=== PATIENT | female | born 1965 | race Caucasian/White ===

== ENCOUNTER 2020-06-24 14:49 | Inpatient (IN) | payer MEDICARE, OTHER ==
[~2020-06-24] VITALS: Ht 160 cm; Wt 110.3 kg
[2020-06-24] MEDS ORDERED: LEXAPRO20 MG PO (14:55)
[2020-06-24] MEDS ORDERED: PEPCID20 MG PO (14:57)
[2020-06-24] MEDS ORDERED: DITROPAN XL10 MG PO (14:57)
[2020-06-24] MEDS ORDERED: 8HR ARTHRITIS650 M1 PO (14:59)
[2020-06-24] MEDS ORDERED: Lopressor25 MG PO (15:06)
[2020-06-24] MEDS ORDERED: INVEGA6 MG PO (15:07)
[2020-06-24] MEDS ORDERED: VITAMIN E400 UNI3 PO (15:08)
[2020-06-24] MEDS ORDERED: KLONOPIN1 M1 PO (15:09)
[2020-06-24] MEDS ORDERED: KLONOPIN2 M1 PO (15:10)
[2020-06-24] MEDS ORDERED: TRAZODONE100 MG PO (15:10)
[2020-06-24] MEDS ORDERED: TYLENOL325 M1 PO (15:11)
[2020-06-24] MEDS ORDERED: ROBITUSSIN DM 101 OZ PO (15:12)
[2020-06-24] MEDS ORDERED: CEPACOL SORE T1 EACH MM (15:13)
[2020-06-24] MEDS ORDERED: MAALOX ADVANCE355 M1 PO (15:15)
[2020-06-24] MEDS ORDERED: MILK OF MA400 MG/51 PO (15:16)
[2020-06-24] MEDS ORDERED: NEURONTIN100 MG PO (16:00)
[2020-06-24 22:13] VITALS: BP 140/78
[2020-06-24 22:19] LABS: BILIRUBIN Negative (Negative); BLOOD Negative (Negative); CLARITY Clear (Clear); COLOR Yellow (Yellow); GLUCOSE Negative (Negative); KETONE Negative (Negative); LEUKO ESTERASE Trace (Negative); NITRITE Negative (Negative); SPECIFIC GRAVITY <= 1.005 (1.001-1.030); UROBILINOGEN 0.2 E.U./dl (0.0-1.0)
[2020-06-25 06:42] LABS: HEMATOCRIT 41.1 % (37.0-47.0); LYMPH # 1.8 10*3/uL (1.3-4.4); LYMPH % 28.1 % (27.0-41.0); MEAN CELL VOLUME 87.1 fl (81.0-99.0); MEAN CORPUSCULAR HGB CONC 32.1 g/dl (33.0-37.0); MEAN PLATELET VOLUME 9.6 fl (9.6-12.3); MONO # 0.5 10*3/uL (0.1-1.0); MONO % 7.4 % (3.0-9.0); NEUT % 64.3 % (47.0-73.0); PLATELET COUNT AUTOMATED 195 10*3/uL (130-400); RED BLOOD COUNT 4.72 10*6/uL (4.10-5.10); RED CELL DISTRI WIDTH 15.7 % (0-14.5); WHITE BLOOD COUNT 6.2 10*3/uL (4.8-10.8)
[2020-06-25 06:53] LABS: CHLORIDE 108 mmol/L (98-107); POTASSIUM 4.1 mmol/L (3.5-5.1); SODIUM 141 mmol/L (136-145)
[2020-06-25 07:09] LABS: ALBUMIN 3.3 gm/dl (3.1-4.5); ALKALINE PHOSPHATASE 74 U/L (45-117); BUN 8 mg/dl (7-24); CHOLESTEROL 125 mg/dL (<200); CREATININE 0.74 mg/dL (0.55-1.02); LDL CHOLESTEROL 48 mg/dL (9-159); SGOT/AST 14 IU/L (3-35); SGPT/ALT 23 U/L (12-78); TOTAL PROTEIN 6.6 gm/dL (6.4-8.2); TRIGLYCERIDES 184 mg/dl (<150)
[2020-06-25 07:24] VITALS: BP 140/69
[2020-06-25 20:00] VITALS: BP 120/76
[2020-06-26 07:24] VITALS: BP 139/83
[2020-06-26 20:00] VITALS: BP 140/94
[2020-06-27 07:25] VITALS: BP 143/53
[2020-06-27 20:00] VITALS: BP 143/86
[2020-06-28 07:14] VITALS: BP 142/81
[2020-06-28 20:00] VITALS: BP 144/84
[2020-06-29 07:32] VITALS: BP 131/88
[2020-06-29 20:00] VITALS: BP 132/78
[2020-06-30 07:34] VITALS: BP 134/70
[2020-06-30 08:59] LABS: HEMATOCRIT 43.5 % (37.0-47.0); LYMPH # 1.2 10*3/uL (1.3-4.4); LYMPH % 22.4 % (27.0-41.0); MEAN CELL VOLUME 86.5 fl (81.0-99.0); MEAN CORPUSCULAR HGB 28.4 pg (27.0-31.0); MEAN CORPUSCULAR HGB CONC 32.9 g/dl (33.0-37.0); MEAN PLATELET VOLUME 9.5 fl (9.6-12.3); MONO # 0.4 10*3/uL (0.1-1.0); MONO % 7.4 % (3.0-9.0); NEUT # 3.6 10*3/uL (2.3-7.9); PLATELET COUNT AUTOMATED 186 10*3/uL (130-400); RED BLOOD COUNT 5.03 10*6/uL (4.10-5.10); WHITE BLOOD COUNT 5.2 10*3/uL (4.8-10.8)
[2020-06-30 09:18] LABS: ALBUMIN 3.3 gm/dl (3.1-4.5); ALKALINE PHOSPHATASE 80 U/L (45-117); BUN 4 mg/dl (7-24); CHLORIDE 102 mmol/L (98-107); POTASSIUM 3.7 mmol/L (3.5-5.1); SGOT/AST 19 IU/L (3-35); SGPT/ALT 27 U/L (12-78); SODIUM 137 mmol/L (136-145); TOTAL PROTEIN 7.4 gm/dL (6.4-8.2)
[2020-06-30 09:25] LABS: VALPROIC ACID (DEPAKENE) 89.1 ug/ml (50-100)
[2020-06-30 20:00] VITALS: BP 148/68
[2020-07-01 07:17] VITALS: BP 121/70
[2020-07-01 20:00] VITALS: BP 118/60
[2020-07-01 22:05] LABS: CLONAZEPAM (KLONOPIN),SERUM 25 ng/mL (20-70)
[2020-07-02 07:21] VITALS: BP 111/76
[2020-07-02] MEDS ORDERED: OMEPRAZOLE MAGN20 MG PO (07:52)
[2020-07-02] MEDS ORDERED: FANAPT4 MG PO (09:36)
[2020-07-02] MEDS ORDERED: DIVALPROEX SOD500 MG PO (09:36)
[2020-07-02] MEDS ORDERED: FANAPT8 MG PO (09:36)
[2020-07-02] MEDS ORDERED: DIVALPROEX SOD250 MG PO (09:36)
== END 2020-07-02 14:14 | DRG 885 ==
LOC: 3N
PROVIDERS: Counselor Professional; ADMIT Psychiatry & Neurology Psychiatry; ATTEND Psychiatry & Neurology Psychiatry
DX: F25.0 Schizoaffective disorder, bipolar type (principal); R45.851 Suicidal ideations; K21.9 Gastro-esophageal reflux disease without esophagitis; F43.10 Post-traumatic stress disorder, unspecified; I10 Essential (primary) hypertension; Z20.822 Contact with and (suspected) exposure to COVID-19; N39.3 Stress incontinence (female) (male); R07.89 Other chest pain; M25.511 Pain in right shoulder; Z79.899 Other long term (current) drug therapy

== ENCOUNTER 2020-06-24 16:48 | Emergency (ER) | payer MEDICARE, OTHER ==
[~2020-06-24] VITALS: Ht 157.4 cm; Wt 110.2 kg
[~2020-06-24 16:48] MED LIST: 8HR ARTHRITIS650 M1 PO; CEPACOL SORE T1 EACH MM; DITROPAN XL10 MG PO; INVEGA6 MG PO; KLONOPIN1 M1 PO; KLONOPIN2 M1 PO; LEXAPRO20 MG PO; Lopressor25 MG PO; MAALOX ADVANCE355 M1 PO; MILK OF MA400 MG/51 PO; NEURONTIN100 MG PO; PEPCID20 MG PO; ROBITUSSIN DM 101 OZ PO; TRAZODONE100 MG PO; TYLENOL325 M1 PO; VITAMIN E400 UNI3 PO
== END 2020-06-24 18:36 ==
LOC: ED 16:48
DX: R44.0 Auditory hallucinations (principal); F31.9 Bipolar disorder, unspecified; Z79.899 Other long term (current) drug therapy

== ENCOUNTER 2020-07-07 09:35 | Inpatient (IN) | payer MEDICARE, OTHER ==
[~2020-07-07] VITALS: Ht 157.4 cm; Wt 108.9 kg
[~2020-07-07 09:35] MED LIST changes: +DIVALPROEX SOD250 MG PO; +DIVALPROEX SOD500 MG PO; +FANAPT4 MG PO; +FANAPT8 MG PO; +OMEPRAZOLE MAGN20 MG PO
[2020-07-07 13:25] VITALS: BP 130/82
[2020-07-07 20:00] VITALS: BP 150/86
[2020-07-08 03:29] LABS: BILIRUBIN Negative (Negative); BLOOD Negative (Negative); CLARITY Clear (Clear); COLOR Yellow (Yellow); GLUCOSE Negative (Negative); KETONE Negative (Negative); LEUKO ESTERASE 1+ (Negative); NITRITE Negative (Negative); SPECIFIC GRAVITY <= 1.005 (1.001-1.030); UROBILINOGEN 0.2 E.U./dl (0.0-1.0)
[2020-07-08 07:04] LABS: HEMATOCRIT 44.6 % (37.0-47.0); LYMPH # 1.8 10*3/uL (1.3-4.4); LYMPH % 30.3 % (27.0-41.0); MEAN CELL VOLUME 86.6 fl (81.0-99.0); MEAN CORPUSCULAR HGB CONC 32.3 g/dl (33.0-37.0); MEAN PLATELET VOLUME 9.4 fl (9.6-12.3); MONO # 0.6 10*3/uL (0.1-1.0); NEUT # 3.4 10*3/uL (2.3-7.9); NEUT % 59.4 % (47.0-73.0); PLATELET COUNT AUTOMATED 201 10*3/uL (130-400); RED BLOOD COUNT 5.15 10*6/uL (4.10-5.10); RED CELL DISTRI WIDTH 16.2 % (0-14.5); WHITE BLOOD COUNT 5.8 10*3/uL (4.8-10.8)
[2020-07-08 07:15] VITALS: BP 118/64
[2020-07-08 07:32] LABS: ALBUMIN 3.3 gm/dl (3.1-4.5); BUN 7 mg/dl (7-24); CHLORIDE 102 mmol/L (98-107); CHOLESTEROL 150 mg/dL (<200); CREATININE 0.76 mg/dL (0.55-1.02); POTASSIUM 4.5 mmol/L (3.5-5.1); SGOT/AST 14 IU/L (3-35); SGPT/ALT 30 U/L (12-78); SODIUM 135 mmol/L (136-145); TOTAL PROTEIN 7.6 gm/dL (6.4-8.2); TRIGLYCERIDES 120 mg/dl (<150)
[2020-07-08 07:40] LABS: ALKALINE PHOSPHATASE 81 U/L (45-117); LDL CHOLESTEROL 71 mg/dL (9-159); VALPROIC ACID (DEPAKENE) 111.5 ug/ml (50-100)
[2020-07-08 07:52] LABS: VITAMIN D, 25-HYDROXY 25.4 ng/mL (30-100)
[2020-07-08 19:21] VITALS: BP 139/86
[2020-07-09 07:42] VITALS: BP 124/56
[2020-07-09 20:00] VITALS: BP 127/81
[2020-07-10 07:59] VITALS: BP 115/70
[2020-07-10 20:00] VITALS: BP 143/54
[2020-07-11 00:06] LABS: CLONAZEPAM (KLONOPIN),SERUM 27 ng/mL (20-70)
[2020-07-11 08:05] VITALS: BP 122/84
[2020-07-11 20:00] VITALS: BP 90/57
[2020-07-11 20:33] VITALS: BP 112/58
[2020-07-12 07:31] VITALS: BP 129/71
[2020-07-12] MEDS ORDERED: GOOD SENSE400 MG/5 M PO (09:59)
[2020-07-12] MEDS ORDERED: CLONAZEPAM1 MG PO (10:10)
[2020-07-12] MEDS ORDERED: VITAMIN D350 MC2 PO (10:10)
[2020-07-12] MEDS ORDERED: DIVALPROEX SOD125 M1 PO (10:10)
== END 2020-07-12 13:20 | DRG 885 ==
LOC: 3N 09:35
PROVIDERS: Registered Nurse; ADMIT Psychiatry & Neurology Psychiatry; ATTEND Psychiatry & Neurology Psychiatry
DX: F25.9 Schizoaffective disorder, unspecified (principal); R45.851 Suicidal ideations; N39.3 Stress incontinence (female) (male); F32.9 Major depressive disorder, single episode, unspecified; F41.9 Anxiety disorder, unspecified; F43.10 Post-traumatic stress disorder, unspecified; I10 Essential (primary) hypertension; K21.9 Gastro-esophageal reflux disease without esophagitis; Z91.81 History of falling; Z90.49 Acquired absence of other specified parts of digestive tract; Z90.722 Acquired absence of ovaries, bilateral; Z83.3 Family history of diabetes mellitus; Z82.49 Family history of ischemic heart disease and other diseases of the circulatory system; Z79.899 Other long term (current) drug therapy; Z91.5 Personal history of self-harm

== ENCOUNTER 2022-11-04 13:51 | Emergency (ER) | payer OTHER, MEDICARE ==
[~2022-11-04] VITALS: Ht 157.4 cm; Wt 80.7 kg
[~2022-11-04 13:51] MED LIST changes: +CHOLESTYRAMINE P4 GM PO; +CLONAZEPAM0.5 M2 PO; +CLONAZEPAM1 MG PO; +CYMBALTA30 MG PO; +CYMBALTA60 MG PO; +DERMACINRX FOL PO; +DICYCLOMINE HYD20 MG PO; +DIVALPROEX SOD125 M1 PO; +GOOD SENSE400 MG/5 M PO; +INVEGA SUSTENN156 MG IM; +KLONOPIN0.5 MG PO; +LATU120T PO; +LIDOCAINE1 EAC1 T; +LOPRESSOR25 MG PO; +MELATONIN5 M6 PO; +NORTRIPTYLINE H50 M1 PO; +ROBAFEN100 MG/51 PO; +VISTARIL50 MG PO; +VITAMIN D325 MC1 PO; +VITAMIN D350 MC2 PO; +VITAMIN E180 M1 PO; +Vitamin D (1,000 UNI PO; +ZESTRIL20 MG PO
[2022-11-04 14:15] LABS: HEMATOCRIT 39.6 % (37.0-47.0); LYMPH # 1.1 10*3/uL (1.3-4.4); LYMPH % 22.8 % (27.0-41.0); MEAN CELL VOLUME 85.2 fl (81.0-99.0); MEAN CORPUSCULAR HGB 29.7 pg (27.0-31.0); MEAN CORPUSCULAR HGB CONC 34.8 g/dl (33.0-37.0); MEAN PLATELET VOLUME 8.4 fl (9.6-12.3); MONO # 0.5 10*3/uL (0.1-1.0); MONO % 9.8 % (3.0-9.0); NEUT # 3.2 10*3/uL (2.3-7.9); NEUT % 67.2 % (47.0-73.0); PLATELET COUNT AUTOMATED 147 10*3/uL (130-400); RED BLOOD COUNT 4.65 10*6/uL (4.10-5.10); RED CELL DISTRI WIDTH 13.9 % (0-14.5); WHITE BLOOD COUNT 4.7 10*3/uL (4.8-10.8)
[2022-11-04 14:54] LABS: ALKALINE PHOSPHATASE 74 U/L (46-116); BUN < 5 mg/dl (9-23); CHLORIDE 95 mmol/L (98-107); POTASSIUM 3.5 mmol/L (3.4-5.1); SGPT/ALT 10 U/L (10-49); TOTAL PROTEIN 6.4 gm/dL (6.0-8.0)
== END 2022-11-05 01:45 | disposition home or self-care (01) ==
LOC: ED 13:51
PROVIDERS: Physician Assistant Medical
DX: F41.9 Anxiety disorder, unspecified (principal); I10 Essential (primary) hypertension; K21.9 Gastro-esophageal reflux disease without esophagitis; I50.9 Heart failure, unspecified; F31.9 Bipolar disorder, unspecified; Z98.890 Other specified postprocedural states; Z90.49 Acquired absence of other specified parts of digestive tract